=== PATIENT | male | born 1970 | race African-American/Black ===

== ENCOUNTER 2021-03-01 10:42 | Emergency (ER) | payer OTHER, SELFPAY ==
--- NOTE | 2021-03-01 10:50 | ED.GENADULT ---
HPI - General Adult General Chief complaint: Nausea/Vomiting/Diarrhea Stated complaint: diarrhea Time Seen by Provider: 03/01/21 10:50 Source: patient History of Present Illness HPI narrative: PATIENT PRESENTS WITH DIARRHEA FOR THE PAST 2 DAYS NO NAUSEA AND NO URI SYMPTOMS NO ABDOMINAL PAIN. NORMAL APPETITE AND NORMAL ACTIVITY NORMALLY HEALTHY INDIVIDUAL. Patient thinks it started after he ate some fast food. Patient denies any diarrhea episodes in the last 24 hours. PATIENT DENIES ANY OTHER SYMPTOMS AND STATES ALL SYMPTOMS FO DIARRHEA HAVE RESOLVED. MD complaint: diarhhea Related Data Home Medications Medication Instructions Recorded Confirmed allopurinol 100 mg PO DAILY 03/01/21 03/01/21 Allergies Allergy/AdvReac Type Severity Reaction Status Date / Time No Known Allergies Allergy Verified 03/01/21 11:00 Review of Systems Review of Systems: Narrative: CONSTITUTIONAL: Denies fever, chills, or sweats. EYES: Denies visual changes, redness, or discharge. ENT: Denies rhinorrhea, congestion, sore throat, or otalgia. CARDIOVASCULAR: Denies chest pain, palpitations, or edema. RESPIRATORY: Denies cough or dyspnea. GASTROINTESTINAL: Denies abdominal pain, nausea, vomiting, or diarrhea. GENITOURINARY: Denies dysuria or hematuria. SKIN: Denies rash or itching. MUSCULOSKELETAL: Denies back pain, joint pain, or myalgia. NEUROLOGIC: Denies headache, numbness, or weakness. PSYCHIATRIC: Denies anxiety or depression. PMFSH Social History Social History Gender identity (if verbalized by the patient): Male Comments At time of signature, agree with nursing past medical, surgical, social and family history. There is no relevant family history pertinent to the presenting complaint Exam Narrative: Exam Narrative: GENERAL: Well-appearing, well-nourished, and in no acute distress. HEAD: Normocephalic, atraumatic. EYES: PERRLA and EOMI. ENT: Nares clear, no rhinorrhea or epistaxis. Mucous membranes moist. NECK: Supple. CHEST: Clear to auscultation. No respiratory distress. HEART: Regular rate and rhythm. No murmur heard. Normal peripheral pulses. ABDOMEN: Soft, nontender, nondistended, normal active bowel sounds. EXTREMITIES: Normal range of motion. No edema. SKIN: Warm, dry, no rash. NEURO: No focal deficits. Alert and oriented x3. [place] Coma Scale Eye Opening: Spontaneous 4 Paramjit Coma Scale Motor: Obeys Commands 6 [place] Coma Scale Verbal: Oriented 5 Paramjit Coma Scale Total 15 Course Vital Signs Vital signs: Vital Signs Temperature 37.3 C 03/01/21 10:55 Pulse Rate 88 03/01/21 10:55 Respiratory Rate 18 03/01/21 10:55 Blood Pressure 148/96 H 03/01/21 10:55 Pulse Oximetry 97 03/01/21 10:55 Temperature 37.3 C 03/01/21 10:55 Pulse Rate 88 03/01/21 10:55 Respiratory Rate 18 03/01/21 10:55 Blood Pressure 148/96 H 03/01/21 10:55 Pulse Oximetry 97 03/01/21 10:55 Please DANIELA schedule a followup visit with your personal physician for further evaluation and treatment. Including recheck and discussion of your blood pressure. If your symptoms persist, change or worsen significantly before you can contact your personal physician then please, without delay, go to the emergency department for further evaluation Medical Decision Making Vital Signs Vital Signs: Vital Signs Temperature 37.3 C 03/01/21 10:55 Pulse Rate 88 03/01/21 10:55 Respiratory Rate 18 03/01/21 10:55 Blood Pressure 148/96 H 03/01/21 10:55 Pulse Oximetry 97 03/01/21 10:55 Temperature 37.3 C 03/01/21 10:55 Pulse Rate 88 03/01/21 10:55 Respiratory Rate 18 03/01/21 10:55 Blood Pressure 148/96 H 03/01/21 10:55 Pulse Oximetry 97 03/01/21 10:55 Critical Care Time Critical Care Time Critical Care Time: No Discharge Plan Discharge Clinical Impression: History of diarrhea Patient Disposition: Home, Self-Care Condition: Stable Instructions: Antibiotic Form, Acute Di
[2021-03-01 10:55] VITALS: BP 148/96; PULSE 88; RESP 18; TEMP 37.3; O2SAT 97
== END 2021-03-01 11:14 | disposition home or self-care (01) ==
PROVIDERS: Emergency Provider Nurse Practitioner Family; PCP Family Medicine
DX: R19.7 Diarrhea, unspecified (principal); E78.00 Pure hypercholesterolemia, unspecified; I10 Essential (primary) hypertension; M10.9 Gout, unspecified
CPT/HCPCS: 99211; G0463